=== PATIENT | female | born 1985 | race Caucasian/White ===

== ENCOUNTER → 2021-09-02 10:58 | Outpatient (CLI) | payer OTHER, MEDICAID, SELFPAY ==
[2021-09-02 19:08] LABS: Add Manual Diff / Slide Review NO; Basophils Absolute Auto 100 /uL (0-100); Basophils Percent Auto 1.5 % (0-2); Eosinophils Absolute Auto 200 /uL (0-450); Eosinophils Percent Auto 4.4 % (2-4); HEMOLYSIS < 15 (0-50); Hematocrit 39.6 % (36-46); Hemoglobin 13.2 g/dL (12.0-16.0); Iron 135 ug/dL (37-170); Lymphocytes Absolute Auto 1300 /uL (1100-4500); Lymphocytes Percent Auto 34.5 % (25-40); Mean Corpuscular HGB Conc 33.3 % (30-36); Mean Corpuscular Hemoglobin 30.2 PG (26-34); Mean Corpuscular Volume 90.8 fL (80-100); Monocytes Absolute Auto 200 /uL (0-900); Monocytes Percent Auto 6.6 % (3-14); Neutrophils Absolute Auto 2000 /uL (1500-7000); Platelet Count 244 X10^3/uL (150-400); Red Blood Cell Count 4.36 X10^6/uL (4.0-5.2); White Blood Cell Count 3.7 X10^3/uL (4.5-11.0)
[2021-09-02 19:18] LABS: Alanine Aminotransferase 18 IU/L (<35); Albumin 4.6 g/dL (3.5-5.0); Albumin Globulin Ratio 1.5 (1.0-2.8); Alkaline Phosphatase 51 U/L (38-126); Aspartate Aminotransferase 26 IU/L (14-36); BUN Creatinine Ratio 18.6 (6-22); Bilirubin Total 0.6 mg/dL (0.2-1.3); Blood Urea Nitrogen 13 mg/dL (7-17); Calcium 9.6 mg/dL (8.4-10.2); Carbon Dioxide 28 mmol/L (22-32); Chloride 105 mmol/L (98-107); Estimated Glomerular Filt Rate > 60.0 mL/min (>60); Glucose 57 mg/dL (70-100); HEMOLYSIS < 15 (0-50); Percent Iron Saturation 47 % (15-50); Potassium 4.2 mmol/L (3.4-5.1); Sodium 140 mmol/L (137-145); Total Iron Binding Capacity 290 ug/dL (265-497); Total Protein 7.6 g/dL (6.3-8.2); Transferrin 213 mg/dL (206-381)
[2021-09-02 19:48] LABS: Ferritin 80 ng/mL (6-137)
[2021-09-02 20:02] LABS: Vitamin B12 200 pg/mL (239-931)
== END ==
PROVIDERS: PCP Physician Assistant; Referring Provider Physician Assistant; Visit Provider Physician Assistant
DX: D64.9 Anemia, unspecified (principal); R11.0 Nausea; R53.83 Other fatigue
CPT/HCPCS: 80053; 82607; 82728; 83540; 83550; 84443; 85025

== ENCOUNTER → 2021-10-14 13:37 | Outpatient (CLI) | payer OTHER, MEDICAID, SELFPAY ==
[2021-10-14 18:47] LABS: Hemoglobin 12.9 g/dL (12.0-16.0); Mean Corpuscular HGB Conc 33.1 % (30-36); Mean Corpuscular Hemoglobin 30.2 PG (26-34); Mean Corpuscular Volume 91.2 fL (80-100); Platelet Count 209 X10^3/uL (150-400); Red Blood Cell Count 4.28 X10^6/uL (4.0-5.2); Red Cell Distribution Width 13.1 % (11.6-14.8); White Blood Cell Count 4.6 X10^3/uL (4.5-11.0)
[2021-10-14 18:59] LABS: Alanine Aminotransferase 20 IU/L (<35); Albumin 4.6 g/dL (3.5-5.0); Albumin Globulin Ratio 1.4 (1.0-2.8); Alkaline Phosphatase 55 U/L (38-126); Aspartate Aminotransferase 27 IU/L (14-36); BUN Creatinine Ratio 16.4 (6-22); Bilirubin Total 0.5 mg/dL (0.2-1.3); Blood Urea Nitrogen 10 mg/dL (7-17); Calcium 9.9 mg/dL (8.4-10.2); Carbon Dioxide 28 mmol/L (22-32); Chloride 105 mmol/L (98-107); Estimated Glomerular Filt Rate > 60.0 mL/min (>60); Globulin 3.4 g/dL (1.7-4.1); Glucose 90 mg/dL (70-100); HEMOLYSIS < 15 (0-50); Potassium 4.4 mmol/L (3.4-5.1); Sodium 139 mmol/L (137-145)
[2021-10-14 19:44] LABS: Neutrophils Absolute Manual 2576 /uL (3000-5900); Total Cells Counted 100
[2021-10-14 19:45] LABS: Hypochromasia 1+
[2021-10-14 20:42] LABS: Vitamin B12 397 pg/mL (239-931)
== END ==
PROVIDERS: PCP Physician Assistant; Visit Provider Physician Assistant
DX: D72.9 Disorder of white blood cells, unspecified (principal); E16.2 Hypoglycemia, unspecified; R53.83 Other fatigue; E53.8 Deficiency of other specified B group vitamins
CPT/HCPCS: 80053; 82607; 83036; 85025

== ENCOUNTER → 2021-10-21 09:04 | Outpatient (CLI) | payer OTHER, MEDICAID, SELFPAY ==
[2021-10-21 19:01] LABS: Hematocrit 38.1 % (36-46); Hemoglobin 12.6 g/dL (12.0-16.0); Mean Corpuscular HGB Conc 32.9 % (30-36); Mean Corpuscular Volume 91.2 fL (80-100); Platelet Count 214 X10^3/uL (150-400); Red Blood Cell Count 4.18 X10^6/uL (4.0-5.2); Red Cell Distribution Width 13.4 % (11.6-14.8); White Blood Cell Count 4.2 X10^3/uL (4.5-11.0)
[2021-10-21 19:11] LABS: Neutrophils Absolute Manual 2100 /uL (3000-5900); Total Cells Counted 100
[2021-10-21 19:12] LABS: RBC Morphology Normal Morphology
== END ==
PROVIDERS: PCP Physician Assistant; Visit Provider Physician Assistant
DX: R53.82 Chronic fatigue, unspecified (principal); R79.9 Abnormal finding of blood chemistry, unspecified
CPT/HCPCS: 81002; 85025

== ENCOUNTER → 2021-10-22 09:43 | Outpatient (CLI) | payer OTHER, MEDICAID, SELFPAY | PROVIDERS: PCP Physician Assistant; Visit Provider Physician Assistant | DX: R79.9 Abnormal finding of blood chemistry, unspecified (principal) | CPT/HCPCS: 87177 ==

== ENCOUNTER → 2021-12-30 11:00 | Outpatient (CLI) | payer OTHER, MEDICAID, SELFPAY ==
[2021-12-30 18:33] LABS: Add Manual Diff / Slide Review NO; Basophils Absolute Auto 0 /uL (0-100); Basophils Percent Auto 0.8 % (0-2); Eosinophils Absolute Auto 300 /uL (0-450); Eosinophils Percent Auto 6.5 % (2-4); Hematocrit 38.4 % (36-46); Hemoglobin 12.8 g/dL (12.0-16.0); Lymphocytes Absolute Auto 1500 /uL (1100-4500); Mean Corpuscular HGB Conc 33.5 % (30-36); Mean Corpuscular Hemoglobin 30.2 PG (26-34); Mean Corpuscular Volume 90.2 fL (80-100); Monocytes Absolute Auto 300 /uL (0-900); Monocytes Percent Auto 7.4 % (3-14); Neutrophils Absolute Auto 2300 /uL (1500-7000); Neutrophils Percent Auto 51.3 % (50-75); Platelet Count 202 X10^3/uL (150-400); Red Blood Cell Count 4.25 X10^6/uL (4.0-5.2); Red Cell Distribution Width 13.5 % (11.6-14.8); White Blood Cell Count 4.4 X10^3/uL (4.5-11.0)
[2021-12-30 18:49] LABS: Cholesterol 196 mg/dL (140-199); HDL Cholesterol 65 mg/dL (40-60); LDL Cholesterol Calculated 121 mg/dL (<100); Triglycerides 51 mg/dL (35-150)
[2021-12-30 19:03] LABS: Vitamin D 25 Hydroxy (D3) 48.3 ng/mL (30.0-100.0)
[2021-12-30 19:12] LABS: Cortisol Random 9.31 ug/dL
[2021-12-30 19:31] LABS: Vitamin B12 757 pg/mL (239-931)
== END ==
PROVIDERS: Family Medicine; PCP Physician Assistant; Visit Provider Physician Assistant
DX: E55.9 Vitamin D deficiency, unspecified (principal); R53.82 Chronic fatigue, unspecified; E78.00 Pure hypercholesterolemia, unspecified
CPT/HCPCS: 80061; 82306; 82533; 82607; 85025

== ENCOUNTER → 2022-02-06 12:39 | Outpatient (CLI) | payer OTHER, MEDICAID, SELFPAY ==
--- NOTE | 2022-02-06 12:40 | DI.MRI.S_ITS ---
PROCEDURE: MR HEAD/BRAIN WO CON INDICATIONS: vertigo imbalance fatigue TECHNIQUE: Noncontrast axial T1 spin echo, axial T2 fast spin echo, sagittal and axial FLAIR, coronal T2 fast spin echo, axial gradient echo, axial diffusion and ADC through the brain. COMPARISON: None. FINDINGS: Image quality: Excellent. CSF Spaces: Basal cisterns are patent. No extra-axial fluid collections. Ventricles are normal in size and shape. Brain: No intracranial masses or hemorrhage. Fried/white matter interface is normal. Brainstem appears normal. Diffusion-weighted images demonstrate no acute ischemic insult. No chronic ischemic insults. Normal intravascular flow voids are present. Skull and face: Calvarium has normal marrow signal. Orbits appear normal. Sinuses: Sinuses and mastoids are clear. IMPRESSION: Normal MRI of the brain Approved by: Emre Gomez M.D. on 02/06/2022 at 15:21
== END ==
PROVIDERS: PCP Physician Assistant; Referring Provider Family Medicine; Visit Provider Family Medicine
DX: R42 Dizziness and giddiness (principal); R41.89 Other symptoms and signs involving cognitive functions and awareness; R26.89 Other abnormalities of gait and mobility; E55.9 Vitamin D deficiency, unspecified; R53.82 Chronic fatigue, unspecified; Z87.820 Personal history of traumatic brain injury
CPT/HCPCS: 70551

== ENCOUNTER → 2022-05-18 13:09 | Outpatient (CLI) | payer OTHER, MEDICAID, SELFPAY ==
[2022-05-18 19:53] LABS: Add Manual Diff / Slide Review NO; Basophils Absolute Auto 100 /uL (0-100); Basophils Percent Auto 1.1 % (0-2); Eosinophils Absolute Auto 200 /uL (0-450); Eosinophils Percent Auto 4.7 % (2-4); Hematocrit 37.7 % (36-46); Hemoglobin 12.5 g/dL (12.0-16.0); Lymphocytes Absolute Auto 1900 /uL (1100-4500); Lymphocytes Percent Auto 40.1 % (25-40); Mean Corpuscular Hemoglobin 30.1 PG (26-34); Mean Corpuscular Volume 91.1 fL (80-100); Monocytes Absolute Auto 300 /uL (0-900); Monocytes Percent Auto 5.5 % (3-14); Neutrophils Absolute Auto 2300 /uL (1500-7000); Neutrophils Percent Auto 48.6 % (50-75); Platelet Count 215 X10^3/uL (150-400); Red Blood Cell Count 4.14 X10^6/uL (4.0-5.2); Red Cell Distribution Width 12.9 % (11.6-14.8); White Blood Cell Count 4.6 X10^3/uL (4.5-11.0)
[2022-05-18 21:01] LABS: Vitamin B12 479 pg/mL (239-931)
== END ==
PROVIDERS: PCP Physician Assistant; Visit Provider Physician Assistant
DX: D51.9 Vitamin B12 deficiency anemia, unspecified (principal)
CPT/HCPCS: 82607; 85025

== ENCOUNTER → 2022-12-27 11:54 | Outpatient (CLI) | payer OTHER, MEDICAID, SELFPAY ==
[2022-12-27 20:25] LABS: Alanine Aminotransferase 20 IU/L (<35); Albumin 4.5 g/dL (3.5-5.0); Albumin Globulin Ratio 1.4 (1.0-2.8); Alkaline Phosphatase 69 U/L (38-126); Aspartate Aminotransferase 26 IU/L (14-36); BUN Creatinine Ratio 10.9 (6-22); Bilirubin Total 0.4 mg/dL (0.2-1.3); Blood Urea Nitrogen 7 mg/dL (7-17); Calcium 9.8 mg/dL (8.4-10.2); Carbon Dioxide 23 mmol/L (22-32); Chloride 103 mmol/L (98-107); Cholesterol 212 mg/dL (140-199); Estimated Glomerular Filt Rate > 60 mL/min (>60); Globulin 3.3 g/dL (1.7-4.1); Glucose 88 mg/dL (70-100); HDL Cholesterol 92 mg/dL (40-60); HEMOLYSIS < 15 (0-50); LDL Cholesterol Calculated 105 mg/dL (<100); Potassium 4.4 mmol/L (3.4-5.1); Sodium 139 mmol/L (137-145); Total Protein 7.8 g/dL (6.3-8.2); Triglycerides 74 mg/dL (35-150)
[2022-12-27 20:29] LABS: Add Manual Diff / Slide Review NO; Basophils Absolute Auto 100 /uL (0-100); Basophils Percent Auto 0.7 % (0-2); Eosinophils Absolute Auto 100 /uL (0-450); Eosinophils Percent Auto 1.5 % (2-4); Hematocrit 40.6 % (36-46); Hemoglobin 13.6 g/dL (12.0-16.0); Lymphocytes Absolute Auto 1900 /uL (1100-4500); Lymphocytes Percent Auto 27.2 % (25-40); Mean Corpuscular HGB Conc 33.4 % (30-36); Mean Corpuscular Hemoglobin 31.6 PG (26-34); Mean Corpuscular Volume 94.5 fL (80-100); Monocytes Absolute Auto 500 /uL (0-900); Monocytes Percent Auto 6.5 % (3-14); Neutrophils Absolute Auto 4500 /uL (1500-7000); Neutrophils Percent Auto 64.1 % (50-75); Platelet Count 248 X10^3/uL (150-400); Red Blood Cell Count 4.29 X10^6/uL (4.0-5.2); Red Cell Distribution Width 14.4 % (11.6-14.8)
[2022-12-27 20:52] LABS: TSH w/ Reflex to FT4 1.44 uIU/mL (0.47-4.68)
[2022-12-27 21:09] LABS: Vitamin B12 312 pg/mL (239-931)
[2022-12-28 19:44] LABS: Vitamin D 25 Hydroxy (D3) 40.3 ng/mL (30.0-100.0)
== END ==
PROVIDERS: PCP Physician Assistant; Visit Provider Family Medicine
DX: E53.8 Deficiency of other specified B group vitamins (principal); E78.5 Hyperlipidemia, unspecified; F32.9 Major depressive disorder, single episode, unspecified; F41.1 Generalized anxiety disorder; F90.9 Attention-deficit hyperactivity disorder, unspecified type; R53.82 Chronic fatigue, unspecified; Z15.89 Genetic susceptibility to other disease; R41.89 Other symptoms and signs involving cognitive functions and awareness
CPT/HCPCS: 80053; 80061; 82306; 82607; 84443; 85025

== ENCOUNTER → 2023-06-02 13:05 | Outpatient (CLI) | payer OTHER, MEDICAID, SELFPAY | PROVIDERS: PCP Family Medicine; Visit Provider Family Medicine | DX: J32.9 Chronic sinusitis, unspecified (principal) | CPT/HCPCS: 87077; 87102 ==

== ENCOUNTER → 2023-06-22 11:30 | Outpatient (CLI) | payer OTHER, MEDICAID, SELFPAY ==
[2023-06-22 19:45] LABS: C-Reactive Protein Quant < 0.5 mg/dL (<1.0)
[2023-06-22 20:12] LABS: Erythrocyte Sedimentation Rate 6 MM/HR (0-20)
[2023-06-22 20:26] LABS: Vitamin B12 331 pg/mL (239-931)
[2023-06-27 16:08] LABS: ANA Screen, IFA Negative (.)
== END ==
PROVIDERS: PCP Family Medicine; Visit Provider Family Medicine
DX: E53.8 Deficiency of other specified B group vitamins (principal); M35.00 Sjogren syndrome, unspecified; H11.1 Conjunctival degenerations and deposits; R53.82 Chronic fatigue, unspecified; G47.00 Insomnia, unspecified
CPT/HCPCS: 82607; 85651; 86038; 86140

== ENCOUNTER → 2023-09-01 13:35 | Outpatient (CLI) | payer OTHER, MEDICAID, SELFPAY ==
[2023-09-06 14:08] LABS: Tissue Transglutaminase IgA <2 U/mL (0-3); Tissue Transglutaminase IgG <2 U/mL (0-5)
== END ==
PROVIDERS: PCP Family Medicine; Visit Provider Family Medicine
DX: K90.41 Non-celiac gluten sensitivity (principal)
CPT/HCPCS: 80305; 83516

== ENCOUNTER → 2023-10-20 08:46 | Outpatient (CLI) | payer OTHER, MEDICAID, SELFPAY ==
--- NOTE | 2023-10-20 08:48 | DI.MG.S_ITS ---
BILATERAL DIGITAL SCREENING MAMMOGRAM 3D/2D WITH CAD: 10/20/2023 CLINICAL: Baseline exam. Routine screening. Family history of breast cancer. No prior exams were available for comparison. Both breasts are heterogeneously dense, which may obscure small masses (category c / 51-75% glandular tissue). Current study was also evaluated with a Computer Aided Detection (CAD) system. No significant masses, calcifications, or other findings are seen in either breast. IMPRESSION: NEGATIVE There is no mammographic evidence of malignancy. A 1 year screening mammogram is recommended. Based on Tyrer-Cuzick model (a risk assessment model), the patient's lifetime risk is 29.6% and her 10 year risk is 3.6%. If a patient has an elevated risk, a more comprehensive evaluation should be considered and/or a referral to a genetic counselor. The [employer], [employer], and NCCN Guidelines advise the consideration of Breast MRI as an adjunct to screening mammography in patients whose Lifetime risk to develop breast cancer is 20% or higher. This exam was interpreted at Station ID: [id number]. NOTE: For mammograms, a report in lay terms will be sent to the patient. Approximately 15% of breast malignancies will not be visualized mammographically. In the management of a palpable breast mass, a negative mammogram must not discourage biopsy of a clinically suspicious lesion. Electronically Signed By: Saul johns/[email or web address]:10/20/2023 10:47:25 letter sent: Normal Exam ACR BI-RADS Category 1: Negative [id number]
== END ==
LOC: MAMMO 08:46
PROVIDERS: PCP Family Medicine; Referring Provider Family Medicine; Visit Provider Family Medicine
DX: Z12.31 Encounter for screening mammogram for malignant neoplasm of breast (principal); Z80.3 Family history of malignant neoplasm of breast; R92.333 Mammographic heterogeneous density, bilateral breasts; Z15.89 Genetic susceptibility to other disease
CPT/HCPCS: 77063; 77067

== ENCOUNTER → 2023-11-10 10:56 | Outpatient (CLI) | payer OTHER, MEDICAID, SELFPAY ==
[2023-11-10 19:06] LABS: Aspartate Aminotransferase 21 IU/L (14-36)
[2023-11-10 19:55] LABS: Vitamin B12 230 pg/mL (239-931)
== END ==
PROVIDERS: PCP Family Medicine; Visit Provider Family Medicine
DX: B35.1 Tinea unguium (principal); Z51.81 Encounter for therapeutic drug level monitoring; E53.8 Deficiency of other specified B group vitamins
CPT/HCPCS: 82607; 84450

== ENCOUNTER → 2023-12-12 13:32 | Outpatient (CLI) | payer OTHER, MEDICAID, SELFPAY ==
[2023-12-12 20:02] LABS: Aspartate Aminotransferase 32 IU/L (14-36)
[2023-12-12 20:57] LABS: Vitamin B12 597 pg/mL (239-931)
== END ==
PROVIDERS: PCP Family Medicine; Visit Provider Family Medicine
DX: Z51.81 Encounter for therapeutic drug level monitoring (principal); E53.8 Deficiency of other specified B group vitamins
CPT/HCPCS: 82607; 84450

== ENCOUNTER → 2024-02-14 13:00 | Outpatient (CLI) | payer OTHER, MEDICAID, SELFPAY ==
[2024-02-14 20:52] LABS: Vitamin B12 630 pg/mL (239-931)
[2024-02-18 09:10] LABS: Methylmalonic Acid,Serum 105 nmol/L (0-378)
== END ==
PROVIDERS: PCP Family Medicine; Visit Provider Family Medicine
DX: E53.8 Deficiency of other specified B group vitamins (principal)
CPT/HCPCS: 82607; 83921

== ENCOUNTER → 2024-03-01 11:53 | Outpatient (CLI) | payer OTHER, MEDICAID, SELFPAY ==
[2024-03-02 01:14] LABS: Alanine Aminotransferase 17 IU/L (<35); Albumin 4.4 g/dL (3.5-5.0); Albumin Globulin Ratio 1.4 (1.0-2.8); Alkaline Phosphatase 59 U/L (38-126); Aspartate Aminotransferase 25 IU/L (14-36); BUN Creatinine Ratio 21.3 (6-22); Bilirubin Total 0.5 mg/dL (0.2-1.3); Blood Urea Nitrogen 13 mg/dL (7-17); Calcium 9.7 mg/dL (8.4-10.2); Carbon Dioxide 27 mmol/L (22-32); Chloride 107 mmol/L (98-107); Estimated Glomerular Filt Rate > 60 mL/min (>60); Globulin 3.1 g/dL (1.7-4.1); Glucose 66 mg/dL (70-100); HEMOLYSIS < 15 (0-50); Potassium 4.5 mmol/L (3.4-5.1); Sodium 138 mmol/L (137-145); Total Protein 7.5 g/dL (6.3-8.2)
== END ==
PROVIDERS: PCP Family Medicine; Visit Provider Family Medicine
DX: B35.1 Tinea unguium (principal); R53.82 Chronic fatigue, unspecified
CPT/HCPCS: 80053

== ENCOUNTER → 2024-04-04 10:58 | Outpatient (CLI) | payer OTHER, MEDICAID, SELFPAY | PROVIDERS: PCP Family Medicine; Referring Provider Nurse Practitioner Adult Health; Visit Provider Nurse Practitioner Adult Health | DX: Z11.3 Encounter for screening for infections with a predominantly sexual mode of transmission (principal) | CPT/HCPCS: 87798; 87801 ==

== ENCOUNTER → 2024-04-05 11:59 | Outpatient (CLI) | payer OTHER, MEDICAID, SELFPAY ==
[2024-04-05 20:53] LABS: TSH w/ Reflex to FT4 1.24 uIU/mL (0.47-4.68)
== END ==
PROVIDERS: PCP Family Medicine; Referring Provider Nurse Practitioner Adult Health; Visit Provider Nurse Practitioner Adult Health
DX: N64.4 Mastodynia (principal)
CPT/HCPCS: 82397; 84146; 84443

== ENCOUNTER → 2024-04-12 13:27 | Outpatient (CLI) | payer OTHER, MEDICAID, SELFPAY ==
[2024-04-12 20:17] LABS: Urine N gonorrhoeae NOT DETECTED
[2024-04-12 20:27] LABS: Urine Chlamydia NOT DETECTED
== END ==
PROVIDERS: PCP Family Medicine; Visit Provider Nurse Practitioner Adult Health
DX: Z11.3 Encounter for screening for infections with a predominantly sexual mode of transmission (principal)
CPT/HCPCS: 87491; 87591

== ENCOUNTER → 2024-08-08 11:39 | Outpatient (CLI) | payer OTHER, SELFPAY ==
[2024-08-08 19:48] LABS: Add Manual Diff / Slide Review NO; Basophils Absolute Auto 0 /uL (0-100); Eosinophils Absolute Auto 200 /uL (0-450); Eosinophils Percent Auto 3.7 % (2-4); Hematocrit 41.5 % (36-46); Hemoglobin 13.6 g/dL (12.0-16.0); Lymphocytes Absolute Auto 1900 /uL (1100-4500); Lymphocytes Percent Auto 35.9 % (25-40); Mean Corpuscular HGB Conc 32.8 % (30-36); Mean Corpuscular Hemoglobin 30.8 PG (26-34); Mean Corpuscular Volume 93.7 fL (80-100); Monocytes Absolute Auto 300 /uL (0-900); Monocytes Percent Auto 6.4 % (3-14); Neutrophils Absolute Auto 2700 /uL (1500-7000); Platelet Count 235 X10^3/uL (150-400); Red Blood Cell Count 4.43 X10^6/uL (4.0-5.2); Red Cell Distribution Width 13.2 % (11.6-14.8); White Blood Cell Count 5.2 X10^3/uL (4.5-11.0)
[2024-08-08 20:17] LABS: HEMOLYSIS 17 (0-50)
[2024-08-08 20:25] LABS: Alanine Aminotransferase 18 IU/L (<35); Albumin 4.3 g/dL (3.5-5.0); Albumin Globulin Ratio 1.3 (1.0-2.8); Alkaline Phosphatase 52 U/L (38-126); Aspartate Aminotransferase 30 IU/L (14-36); BUN Creatinine Ratio 20.3 (6-22); Bilirubin Total 0.5 mg/dL (0.2-1.3); Blood Urea Nitrogen 14 mg/dL (7-17); Calcium 9.6 mg/dL (8.4-10.2); Carbon Dioxide 24 mmol/L (22-32); Chloride 105 mmol/L (98-107); Estimated Glomerular Filt Rate > 60 mL/min (>60); Globulin 3.2 g/dL (1.7-4.1); Glucose 87 mg/dL (70-100); Potassium 4.2 mmol/L (3.4-5.1); Sodium 134 mmol/L (137-145); Total Protein 7.5 g/dL (6.3-8.2)
[2024-08-08 21:18] LABS: Vitamin B12 351 pg/mL (239-931)
== END ==
PROVIDERS: PCP Family Medicine; Visit Provider Family Medicine
DX: Z51.81 Encounter for therapeutic drug level monitoring (principal); E53.8 Deficiency of other specified B group vitamins; R53.82 Chronic fatigue, unspecified
CPT/HCPCS: 80053; 82607; 85025

== ENCOUNTER → 2025-02-13 11:31 | Outpatient (CLI) | payer OTHER, SELFPAY ==
[2025-02-13 19:59] LABS: Add Manual Diff / Slide Review NO; Basophils Absolute Auto 0 /uL (0-100); Basophils Percent Auto 0.6 % (0-2); Eosinophils Absolute Auto 100 /uL (0-450); Eosinophils Percent Auto 1.3 % (2-4); Hemoglobin 12.8 g/dL (12.0-16.0); Lymphocytes Absolute Auto 2200 /uL (1100-4500); Lymphocytes Percent Auto 34.5 % (25-40); Mean Corpuscular HGB Conc 33.7 % (30-36); Mean Corpuscular Hemoglobin 31.5 PG (26-34); Mean Corpuscular Volume 93.5 fL (80-100); Monocytes Absolute Auto 300 /uL (0-900); Monocytes Percent Auto 5.1 % (3-14); Neutrophils Absolute Auto 3800 /uL (1500-7000); Neutrophils Percent Auto 58.5 % (50-75); Platelet Count 209 X10^3/uL (150-400); Red Blood Cell Count 4.07 X10^6/uL (4.0-5.2); Red Cell Distribution Width 13.4 % (11.6-14.8); White Blood Cell Count 6.5 X10^3/uL (4.5-11.0)
[2025-02-13 20:13] LABS: Aspartate Aminotransferase 29 IU/L (14-36); Blood Urea Nitrogen 12 mg/dL (7-17); Carbon Dioxide 22 mmol/L (22-32); Glucose 78 mg/dL (70-99); HEMOLYSIS 25 (0-50); Potassium 3.8 mmol/L (3.4-5.1)
[2025-02-13 20:14] LABS: Alanine Aminotransferase 15 IU/L (<35); Albumin 4.5 g/dL (3.5-5.0); Albumin Globulin Ratio 1.6 (1.0-2.8); Alkaline Phosphatase 56 U/L (38-126); Bilirubin Total 0.7 mg/dL (0.2-1.3); Calcium 9.2 mg/dL (8.4-10.2); Chloride 106 mmol/L (98-107); Cholesterol 195 mg/dL (140-199); Estimated Glomerular Filt Rate > 60 mL/min (>60); Globulin 2.9 g/dL (1.7-4.1); HDL Cholesterol 83 mg/dL (40-60); LDL Cholesterol Calculated 103 mg/dL (<100); Sodium 138 mmol/L (137-145); Total Protein 7.4 g/dL (6.3-8.2); Triglycerides 43 mg/dL (35-150)
[2025-02-13 21:19] LABS: Vitamin B12 374 pg/mL (239-931)
== END ==
PROVIDERS: PCP Family Medicine; Visit Provider Family Medicine
DX: F98.8 Other specified behavioral and emotional disorders with onset usually occurring in childhood and adolescence (principal); R53.82 Chronic fatigue, unspecified; F33.1 Major depressive disorder, recurrent, moderate; E78.5 Hyperlipidemia, unspecified; F30.8 Other manic episodes; J32.9 Chronic sinusitis, unspecified; E53.8 Deficiency of other specified B group vitamins; Z15.89 Genetic susceptibility to other disease
CPT/HCPCS: 80053; 80061; 82607; 85025

== ENCOUNTER → 2025-05-02 15:48 | Outpatient (CLI) | payer OTHER, SELFPAY ==
--- NOTE | 2025-05-02 15:49 | DI.MG.S_ITS ---
MM screening mammo BI: 05/02/2025. BI-RADS: 1 CLINICAL: 39-year old female for bilateral screening mammogram. Tyrer-Cuzick lifetime risk of 21.6%. Current reported family history of breast cancer: mother. PRIOR EXAMS 10/20/2023. MAMMOGRAPHY TECHNIQUE: 2D and 3D (tomosynthesis) digital mammographic views obtained, with additional images as needed for full coverage. Current study was also evaluated with a Computer Aided Detection (CAD) system. DENSITY C. The breasts are heterogeneously dense, which may obscure small masses. MAMMOGRAPHY FINDINGS Bilateral: No suspicious mass, asymmetry, microcalcification, or other abnormality seen. IMPRESSION: * No evidence of malignancy. RECOMMENDATIONS Bilateral * According to the Tyrer-Cuzick Risk Assessment Model, based on the information provided your patient has a greater than 20% lifetime risk for developing breast cancer. Consider supplemental screening with breast MRI and participation in a high risk screening program. * Annual screening mammography. OVERALL ASSESSMENT CATEGORY BI-RADS-1: Negative. The [employer] recommends annual screening mammography beginning at age 40 for women with average risk of breast cancer. ELECTRONICALLY SIGNED: Francisco Mary M.D. on 05/02/2025 at 10:23:49 PM PT Interpreting Station ID: [id number]
== END ==
LOC: MAMMO 15:49
PROVIDERS: PCP Family Medicine; Referring Provider Family Medicine; Visit Provider Family Medicine
DX: Z12.31 Encounter for screening mammogram for malignant neoplasm of breast (principal); R92.333 Mammographic heterogeneous density, bilateral breasts; Z80.3 Family history of malignant neoplasm of breast
CPT/HCPCS: 77063; 77067

== ENCOUNTER → 2025-07-02 13:16 | Outpatient (CLI) | payer OTHER, SELFPAY ==
[2025-07-02 20:18] LABS: Folate 16.6 ng/mL (2.76-20.0); Vitamin B12 660 pg/mL (239-931)
[2025-07-02 20:36] LABS: Urine N gonorrhoeae NOT DETECTED
[2025-07-02 20:47] LABS: Urine Chlamydia NOT DETECTED
[2025-07-02 21:45] LABS: HIV 1 & 2 Ab/Ag 4th Gen Combo NEGATIVE (NEGATIVE)
== END ==
PROVIDERS: PCP Family Medicine; Visit Provider Family Medicine
DX: E53.8 Deficiency of other specified B group vitamins (principal); B35.1 Tinea unguium; Z15.89 Genetic susceptibility to other disease; Z20.2 Contact with and (suspected) exposure to infections with a predominantly sexual mode of transmission
CPT/HCPCS: 82607; 82746; 84450; 86592; 87389; 87491; 87591